=== PATIENT | male | born 1985 | race Hispanic/Latino ===

== ENCOUNTER 2018-03-11 10:18 | Emergency (ER) | payer SELFPAY ==
[~2018-03-11] VITALS: Ht 157.5 cm; Wt 60.0 kg
[2018-03-11] MEDS ORDERED: METFORMIN850 MG PO ×2 (10:35→10:48)
[2018-03-11 11:05] VITALS: BP 122/67
== END 2018-03-11 11:05 | disposition home or self-care (01) | DRG 639 ==
LOC: ED 10:18
DX: E11.9 Type 2 diabetes mellitus without complications (principal); M54.2 Cervicalgia; Z79.84 Long term (current) use of oral hypoglycemic drugs; R22.1 Localized swelling, mass and lump, neck